=== PATIENT | female | born 1955 | race Caucasian/White ===

== ENCOUNTER → 2025-01-04 | Outpatient (CLI) | payer MEDICARE, SELFPAY ==
--- NOTE | 2025-01-04 11:59 | EKG12_ITS ---
Test Reason : PREOP Blood Pressure : */* mmHG Vent. Rate : 54 BPM Atrial Rate : 54 BPM P-R Int : 148 ms QRS Dur : 82 ms QT Int : 446 ms P-R-T Axes : 56 27 56 degrees QTcB Int : 422 ms Sinus bradycardia Otherwise normal ECG Confirmed by Obi Paredes ([id number]), tape editor LAVINIA POOLE ([id number]) on 01/05/2025 11:03:34 AM Referred By: Bismark Gibson Confirmed By: Obi Paredes
[2025-01-04 12:51] LABS: Hematocrit 41.4 % (37-47); Hemoglobin 13.3 g/dL (12.0-15.0); Immature Granulocytes Count 0.020 X10^3/uL (0.0-0.0); Mean Corp Hgb Conc 32.1 g/dL (32-36); Mean Corpuscular Volume 88.7 fL (81-99); Mean Platelet Vol. 10.1 fl (6.2-12.0); NRBC Flagged by Analyzer 0 % (0-5); Platelet Count 217 K/mm3 (150-450); RBC Distribution Width CV 14.3 % (11.6-14.6); RBC Distribution Width SD 46.3 fl (35.1-43.9); Red Blood Count 4.67 M/mm3 (4.2-5.4); White Blood Count 6.9 K/mm3 (4.4-11.0)
[2025-01-04 13:17] LABS: Creatinine, Urine (random) 44.30 mg/dL (28.00-217.00); Protein, Urine (Random) < 6.0 mg/dL (0.0-12.0); Protein:Creat Ratio 112 mg/g CRE (0-200)
[2025-01-04 13:19] LABS: PTHIN 44 pg/mL (11-61)
[2025-01-04 13:30] LABS: Albumin, Serum 4.3 g/dL (3.4-4.8); Anion Gap 11 (5-15); BUN 20 mg/dL (4-19); BUN/Creat Ratio 17.3 RATIO (10-20); Calcium,Total 9.7 mg/dL (7.6-11.0); Carbon Dioxide 25.3 mmol/L (21.0-32.0); Chloride 102 mmol/L (98-108); Glucose 89 mg/dL (70-99); Potassium 4.2 mmol/L (3.3-5.1); Vitamin D,25 Hydroxy 99.0 ng/mL (30-100)
--- OUTSIDE RECORDS SUMMARY | 2025-01-04 21:58 | XMS RPT_ITS | CCD ---
Author Organization [facility] Care Team Providers Care Bookkeeper Assistant Name Role Phone Nuris Gillis Primary Care Provider [phone] NURIS GILLIS Primary Care Unavailab le MICHELLE GAGNON Referring Unavailable NURIS GILLIS Referring Unavailab NURIS Ferrell Primary Care Unavailab le Nuris Gillis Primary Care Provider [phone] NURIS GILLIS Primary Care Unavailab le Allergies Allergy Classification Reported Allergen(s) Allergy Type Date of Onset Reaction(s) Facility (3 sources) Adhesive Tape Allergy to substance Other: See Comments [facility] Medications Current Medications Medication Drug Class(es) Dates Sig (Normalized) Sig (Original) Aspirin (10 sources) Platelet Aggregation Inhibitor, Nonsteroidal Anti-inflammatory Drug BABY ASPIRIN ORAL Take by mouth. Active BABY ASPIRIN ORA L Take by mouth. 0 Active Comment on above: Take by mouth. Calcium Carbonate (10 sources) CALCIUM CARBONAT E (CALCIUM 500 ORAL) Take by mouth. Active CALCIUM CARBONAT E (CALCIUM 500 ORAL) Take by mouth. 0 Active Comment on above: Take by mouth. Calcium Carbonate / vitamin D3 (10 sources) CALCIUM CARBONAT E/VITAMIN D3 (VITAMIN D-3 ORAL) Take by mouth. Active CALCIUM CARBONAT E/VITAMIN D3 (VITAMIN D-3 ORAL) Take by mouth. 0 Active Comment on above: Take by mouth. estradiol 0.5 mg oral tablet (2 sources) Estrogen Start: 05-27-2024 take 1 tablet by mouth once estradiol (ESTRACE) 0.5 mg tablet Take 1 tablet by mouth every afternoon. 05/27/2024 Active Flaxseed extract (10 sources) Non-Standardized Food Allergenic Extract, Non-Standardized Plant Allergenic Extract FLAXSEED ORAL Take by mouth. Active FLAXSEED ORAL Ta ke by mouth. 0 Active Comment on above: Take by mouth. Lactobacillus acidophilus (2 sources) take 1 tablet by mouth once daily Lactobacillus acidophilus (PROBIOTIC ACIDOPHILUS ORAL) Take 1 tablet by mouth once daily. Active medroxyPROGESTERone acetate 2.5 mg oral tablet (2 sources) Progestin Start: 2021 medroxyPROGESTERone (PROVERA) 2.5 mg tablet 04/06/2022 Active Multivitamin capsule (10 sources) take 1 capsule by mouth once daily Multivitamin capsule Take 1 capsule by mouth once daily. Active take 1 capsule by mouth once emerald ly Multivitamin capsule Take 1 capsule by mouth once daily. 0 Active Comment on above: Take 1 capsule by mo uth once daily. sertraline 50 mg oral tablet (2 sources) Serotonin Reuptake Inhibitor Start: 01-22-2023 sertraline (ZOLOFT) 50 mg tablet 01/22/2023 Active vitamin b12 0.5 mg oral tablet (10 sources) Vitamin B12 cyanocobalamin ( B-12 DOTS) 500 mcg tab Take by mouth once daily. Active Comment on above: Take by mouth once d aily. Completed/Discontinued Medications Medication Drug Class(es) Dates Sig (Normalized) Sig (Original) ascorbic acid 500 mg oral tablet (8 sources) Vitamin C End: 06-29-2024 take 1 tablet by mouth once daily ascorbic acid (VITAMIN C) 500 mg tablet Take 500 mg by mouth once daily. 06/29/2024 Discontinued (Course of therapy completed) Comment on above: Take 500 mg by mouth once daily. vitamin e 180 mg oral capsule (8 sources) End: 06-29-2024 take 1 capsule by mouth once daily VITAMIN E, DL,TOCOPHERYL ACET, (VITAMIN E, DL, ACETATE,) 400 unit cap Take 400 Units by mouth once daily. 06/29/2024 Discontinued (Course of therapy completed) Comment on above: Take 400 Units by mo uth once daily. Problems Active Problems Problem Classification Problem Date Documented Da te Episodic/Chronic Chronic kidney disease (1 source) Chronic kidney disease; Translations: [Chronic kidney disease (CKD) stage G3a/A1, moderately decreased glomerular filtration rate (GFR) between 45-59 mL/min/1.73 square meter and albuminuria creatinine ratio less than 30 mg/g ([facility])] Onset: 12-30-2023 Nutritional deficiencies (1 source) Vitamin D deficiency, unspecified; Translations: [Avitaminosis D] Onset: 12-30-2023 Chronic Other screening for suspected conditions (not mental disorders or infectious disease) (3 sources) Abnormal findings on diagnostic imaging of breast; Translations: [Other abnormal and inconclusive findings on diagnostic imaging of breast] 06-29-2024 Episodic Unclassified (1 source) screening Onset: 06-18-2024 Past or Other Problems Problem Classification Problem Date Documented Da te Episodic/Chronic Other diseases of kidney and ureters (1 source) Hydronephrosis with ureteropelvic junction obstruction; Translations: [Acquired hydronephrosis with ureteropelvic junction (UPJ) obstruction] Onset: 12-30-2023 Episodic Other gastrointestinal disorders (10 sources) Disorder of abdomen; Translations: [Other specified symptoms and signs involving the digestive system and abdomen] Onset: 08-03-2014 08-03-2014 Episodic Results Test Name Value Interpretation Reference Range Facil ity CNPKayy 06-25-2024 CNPN Telephone (RADMN) JUANITA VALLES ([id number]) 1955 F VFE Date Time Provider Department 06/25/24 RAYMUNDO ARRIAGA MD During your visit today, we recorded the following information about you: Juan Staleyra 06/25/2024 9:30 AM Signed CALLED PT TO HELP HER SCHEDULED BX. SHE WANTED TO GO TO THE [place] LOCATION SINCE SHE LIVES IN [place]. I GAVE HER THE PHONE NUMBER TO [place] [facility]. AND THE INSTRUCTIONS TO WHAT SHE NEEDS TO DO. SHE WILL CALL US BACK IF SHE CANNOT GET INTO [place]. Allergies As of Date: 06/25/2024 (No Known Allergies) Date Reviewed: 08/03/2014 Reviewed by: Mary Quiroz - Fully Assessed Reason for Visit: Mammogram Result Call Back [[id number]] Prescriptions as of 06/25/2024 - BABY ASPIRIN ORAL Take by mouth. - Multivitamin capsule Take 1 capsule by mouth once daily. - VITAMIN E, DL,TOCOPHERYL ACET, (VITAMIN E, DL, ACETATE,) 400 unit cap Take 400 Units by mouth once daily. - ascorbic acid (VITAMIN C) 500 mg tablet Take 500 mg by mouth once daily. - FLAXSEED ORAL Take by mouth. - CALCIUM CARBONATE (CALCIUM 500 ORAL) Take by mouth. - CALCIUM CARBONATE/VITAMIN D3 (VITAMIN D-3 ORAL) Take by mouth. - cyanocobalamin (B-12 DOTS) 500 mcg tab Take by mouth once daily. Problem List As Of Date 06/25/2024 Noted Resolved Abnormal abdominal exam [R19.8] 08/03/2014 Encounter Status:Closed by SIRI STALEY on 06/25/24 Normal [facility] [employer] BRE[employer] Opicos RTon 06-23 [facility] [employer] * * *Final Report* * * DATE OF EXAM: Jun 23 2024 9:23AM WRU [id number] - [facility] [employer] RT / PROCEDURE REASON: Abnormal Mammogram Screening * * * * Physician Interpretation * * * * [place] [place] [address] #[id number] - [facility] [employer] RT HISTORY: Patient is 69 years old and is seen for diagnostic evaluation of abnormal mammogram in the right breast. Patient states no personal history of breast cancer. Patient states no personal history of other cancers. COMPARISON STUDIES: The present examination has been compared to prior imaging studies dated 03/29/2020 (mammogram), 03/30/2021 (mammogram), 04/05/2022 (mammogram), 04/09/2023 (mammogram) and 06/18/2024 (mammogram). ULTRASOUND TECHNIQUE: Targeted ultrasound of the indicated area was performed. Goss scale images were saved. ULTRASOUND FINDINGS: There is an oval mass with circumscribed margins measuring 0.5 cm in the right breast at 2 o'clock, middle depth. Internal echotexture is hypoechoic. Color flow imaging demonstrates vascularity is not present. No axillary adenopathy. IMPRESSION: The 0.5 cm oval mass in the right breast is suspicious for malignancy. Ultrasound-guided biopsy is recommended. BI-RADS Category 4: Suspicious Interpreting Radiologist: Raymundo Arriaga M.D. Electronically signed on: 06/23/2024 Mainframe Programmer: CASIMIRO Transcribe Date/Time: Jun 23 2024 9:08A Dictated by : RAYMUNDO ARRIAGA MD This examination was interpreted and the report reviewed and electronically signed by: RAYMUNDO ARRIAGA MD on Jun 23 2024 9:43AM EST [id number] N Normal [facility] US Breast - right limitedon 06-23-2024 IMPRESSION: The 0.5 cm oval mass in the right breast is suspicious for malignancy. Ultrasound-guided biopsy is recommended. BI-RADS Category 4: Suspicious Interpreting Radiologist: Raymundo Arriaga M.D. Electronically signed on: 06/23/2024 Mainframe Programmer: CASIMIRO Transcribe Date/Time: Jun 23 2024 9:08A Dictated by : RAYMUNDO ARRIAGA MD This examination was interpreted and the report reviewed and electronically signed by: RAYMUNDO ARRIAGA MD on Jun 23 2024 9:43AM EST DIVISION OF RADIOLOGY * * *Final Report* * * DATE OF EXAM: Jun 23 2024 9:23AM U [id number] - [facility] [employer] RT / PROCEDURE REASON: Abnormal Mammogram Screening * * * * Physician Interpretation * * * * [place] [address] #[id number] - [facility] [employer] RT HISTORY: Patient is 69 years old and is seen for diagnostic evaluation of abnormal mammogram in the right breast. Patient states no personal history of breast cancer. Patient states no personal history of other cancers. COMPARISON STUDIES: The present examination has been compared to prior imaging studies dated 03/29/2020 (mammogram), 03/30/2021 (mammogram), 04/05/2022 (mammogram), 04/09/2023 (mammogram) and 06/18/2024 (mammogram). ULTRASOUND TECHNIQUE: Targeted ultrasound of the indicated area was performed. Goss scale images were saved. ULTRASOUND FINDINGS: There is an oval mass with circumscribed margins measuring 0.5 cm in the right breast at 2 o'clock, middle depth. Internal echotexture is hypoechoic. Color flow imaging demonstrates vascularity is not present. No axillary adenopathy. DIVISION OF RADIOLOGY Provider, Jesús lopez [place] - 06/23/2024 * * *Final Report* * * DATE OF EXAM: Jun 23 2024 9:23AM WRU 0594 - [facility] US BREAST LTD RT / PROCEDURE REASON: Abnormal Mammogram Screening * * * * Physician Interpretation * * * * [place] [address] #[id number] - [facility] US [employer] RT HISTORY: Patient is 69 years old and is seen for diagnostic evaluation of abnormal mammogram in the right breast. Patient states no personal history of breast cancer. Patient states no personal history of other cancers. COMPARISON STUDIES: The present examination has been compared to prior imaging studies dated 03/29/2020 (mammogram), 03/30/2021 (mammogram), 04/05/2022 (mammogram), 04/09/2023 (mammogram) and 06/18/2024 (mammogram). ULTRASOUND TECHNIQUE: Targeted ultrasound of the indicated area was performed. Goss scale images were saved. ULTRASOUND FINDINGS: There is an oval mass with circumscribed margins measuring 0.5 cm in the right breast at 2 o'clock, middle depth. Internal echotexture is hypoechoic. Color flow imaging demonstrates vascularity is not present. No axillary adenopathy. IMPRESSION IMPRESSION: The 0.5 cm oval mass in the right breast is suspicious for malignancy. Ultrasound-guided biopsy is recommended. BI-RADS Category 4: Suspicious Interpreting Radiologist: Raymundo Arriaga M.D. Electronically signed on: 06/23/2024 Mainframe Programmer: CASIMIRO Transcribe Date/Time: Jun 23 2024 9:08A Dictated by : RAYMUNDO ARRIAGA MD This examination was interpreted and the report reviewed and electronically signed by: RAYMUNDO ARRIAGA MD on Jun 23 2024 9:43AM EST [facility] Radiology Study observation (narrative) [facility] US Breast - right limitedOrd ered By: [facility] Provider on 06-23-2024 [facility] ALEM SCREENING W TOMOon 06-18 ALEM SCREENING W ALEX * * *Final Report* * * DATE OF EXAM: Jun 18 2024 5:09PM [id number] [id number] - ALEM SCREENING W ALEX / PROCEDURE REASON: Z12.31 Encounter for screening mammogram for malignant neoplasm of breast * * * * Physician Interpretation * * * * [address] [address] #[id number] - ALEM SCREENING W ALEX HISTORY: Patient is 69 years old and is seen for screening. No current complaints. Patient states no personal history of breast cancer. Patient states no personal history of other cancers. COMPARISON STUDIES: The present examination has been compared to prior imaging studies dated 03/18/2019 (mammogram), 03/29/2020 (mammogram), 03/30/2021 (mammogram), 04/05/2022 (mammogram) and 04/09/2023 (mammogram). MAMMOGRAM TECHNIQUE: The study was acquired using full field digital technology and interpreted from soft copy. Digital Breast Tomosynthesis (DBT) images were obtained and used to assist in the interpretation of this examination. Computer-aided detection was utilized by the radiologist in the interpretation of this examination. MAMMOGRAM FINDINGS: The breasts are heterogeneously dense, which may obscure small masses. There is an oval mass in the upper inner quadrant of the right breast, anterior depth. No suspicious masses, calcifications or other abnormalities are seen in the left breast. IMPRESSION: The oval mass in the right breast requires additional evaluation. Diagnostic ultrasound is recommended. BI-RADS Category 0: Incomplete: Needs Additional Imaging Evaluation RISK: Based on the Tyrer-Cuzick (TC) risk assessment model, this patient has a 4.0% lifetime risk of developing breast cancer, meaning they are at average risk for developing breast cancer. However, this is only an estimate based on available history provided on the patient's questionnaire. We encourage all patients to talk with their providers about these results, further recommendations for managing breast health, and appropriate supplemental screening options if the patient has dense breast tissue. Interpreting Radiologist: Latasha Birch M.D. Electronically signed on: 06/21/2024 Mainframe Programmer: CASIMIRO Transcribe Date/Time: Jun 18 2024 4:46P Dictated by : LATASHA BIRCH MD This examination was interpreted and the report reviewed and electronically signed by: LATASHA BIRCH MD on Jun 21 2024 1:11PM EST [id number] N Normal [facility] 25(OH)D3 SerPl-mCncon 2023 25-hydroxyvitamin D3 [Mass/Vol] 87.3 ng/mL Normal >=30.0 [facility] Comment on above: Order Comment: Speci men Type: BLOOD SPECIMEN Ordering Facility: [address] Address: [address] [place] [address] Result Comment: Clas sification of 25 [place] Vitamin D status: Deficiency: <= 20.0 ng/ml. Insufficiency: 21.0-29.0 ng/ml. Sufficiency: >= 30.0 ng/ml. Performed By: #### 1 989-3 #### [facility] CLIA [id number] [address] STATES OF [facility] CBC panel Auto (Bld)on 12-29 Erythrocyte distribution width (RBC) [Ratio] 15.6 % High 11.5-15.0 [facility] Comment on above: Order Comment: Speci [facility] Type: BLOOD SPECIMEN Ordering Facility: [address] Address: [address] [place] [address] Performed By: #### 5 8410-2 #### [facility] CLIA [id number] [address] [place] [address] [place] Hematocrit (Bld) [Volume fraction] 37.1 % Normal 36.0-46.0 [facility] Comment on above: Order Comment: Speci men Type: BLOOD SPECIMEN Ordering Facility: [address] Address: [address] [place] [address] Performed By: #### 5 8410-2 #### [facility] CLIA [id number] [address] [place] [address] [place] Hemoglobin (Bld) [Mass/Vol] 11.5 g/dL Normal 11.5-15.5 [facility] Comment on above: Order Comment: Speci men Type: BLOOD SPECIMEN Ordering Facility: [address] Address: [address] [place] [address] Performed By: #### 5 8410-2 #### [facility] CLIA [id number] [address] [place] [address] [place] MCH (RBC) [Entitic mass] 26.1 pg Normal 26.0-34.0 [facility] Comment on above: Order Comment: Speci men Type: BLOOD SPECIMEN Ordering Facility: [address] Address: [address] [place] [address] Performed By: #### 5 8410-2 #### [facility] CLIA [id number] [address] [place] [address] [place] MCHC (RBC) [Mass/Vol] 31.0 g/dL Normal 30.5-36.0 [facility] Comment on above: Order Comment: Speci men Type: BLOOD SPECIMEN Ordering Facility: [address] Address: [address] [place] [address] Performed By: #### 5 8410-2 #### [facility] CLIA [id number] [address] [place] [address] [place] MCV (RBC) [Entitic vol] 84.1 fL Normal 80.0-100.0 [facility] Comment on above: Order Comment: Speci men Type: BLOOD SPECIMEN Ordering Facility: [address] Address: [address] [place] [address] Performed By: #### 5 8410-2 #### [facility] CLIA [id number] [address] [place] [address] [place] Platelet mean volume (Bld) [Entitic vol] 9.6 fL Normal 9.0-12.7 [facility] Comment on above: Order Comment: Speci men Type: BLOOD SPECIMEN Ordering Facility: [address] Address: [address] [place] [address] Performed By: #### 5 8410-2 #### [facility] CLIA [id number] [address] [place] [address] [place] Platelets (Bld) [#/Vol] 197 10*3/uL Normal 150-400 [facility] Comment on above: Order Comment: Speci men Type: BLOOD SPECIMEN Ordering Facility: [facility] 30 [facility] Address: [address] [place] [address] Performed By: #### 5 8410-2 #### [facility] CLIA [id number] [address] [place] [place] [address] [place] RBC (Bld) [#/Vol] 4.41 10*6/uL Normal 3.90-5.20 [facility] Comment on above: Order Comment: Speci men Type: BLOOD SPECIMEN Ordering Facility: [address] Address: [address] [place] [address] Performed By: #### 5 8410-2 #### [facility] CLIA [id number] [address] [place] [address] [place] WBC (Bld) [#/Vol] 5.81 10*3/uL Normal 3.70-11.00 [facility] Comment on above: Order Comment: Speci men Type: BLOOD SPECIMEN Ordering Facility: [address] Address: [address] [place] [address] Performed By: #### 5 8410-2 #### [facility] CLIA [id number] [address] [place] [address] [facility] [place] [facility] Parathyrin.intact [Mass/Vol] 55 pg/mL Normal 15-65 [facility] Comment on above: Order Comment: Speci men Type: BLOOD SPECIMEN Ordering Facility: [address] Address: [address] [place] [address] Result Comment: Test methodology for this assay has moved from Siemens Centaur XP to Nikhil néstor 8000 effective March 27, 2022. Please note there may be a change in the reporting units and/or reference range. Performed By: #### 2 731-8 #### [facility] CLIA [id number] [address] [place] Prot/Creat Uron 07-08-2024 Protein/Creatinine (U) [Mass ratio] 0.12 mg/mg Normal <0.15 [facility] Comment on above: Order Comment: Speci men Type: URINE SPECIMEN Ordering Facility: [facility] 30 [facility] Address: [address] [place] [address] Result Comment: Adul t Proteinuria Categories: <0.15 mg/mg is considered normal to mildly increased 0.15 - 0.50 mg/mg is considered moderately increased >0.50 mg/mg is considered severely increased KDIGO. (2013). KDIGO 2012 Clinical Practice Guideline for the Evaluation and Management of Chronic Kidney Disease. Official Journal of the International Society of Nephrology, 3(1), 1-150. Performed By: #### 2 890-2 #### [facility] Up [facility] CLIA [id number] [address] [place] [facility] Protein/Creatinine (U) [Mass ratio]on 12-30-2023 Creatinine (U) [Mass/Vol] 40.5 mg/dL Low 42.2-237.9 [facility] Comment on above: Order Comment: Speci men Type: URINE SPECIMEN Ordering Facility: [address] Address: [address] [place] [address] Performed By: #### 2 890-2 #### [facility] CLIA [id number] [address] [place] [facility] Protein (U) [Mass/Vol] 5 mg/dL Normal 0-20 [facility] Comment on above: Order Comment: Speci men Type: URINE SPECIMEN Ordering Facility: [facility] 30 [facility] Address: [address] [place] [address] Performed By: #### 2 890-2 #### [facility] CLIA [id number] [address] [place] Renal function 2000 panelon 12-30-2023 Albumin [Mass/Vol] 4.3 g/dL Normal 3.9-4.9 [facility] Comment on above: Order Comment: Speci men Type: BLOOD SPECIMEN Ordering Facility: [address] Address: [address] [place] [address] Performed By: #### 2 4362-6 #### [facility] CLIA [id number] [address] [place] [place] [address] [place] Anion gap [Moles/Vol] 8 mmol/L Normal 8-15 [facility] Comment on above: Order Comment: Speci men Type: BLOOD SPECIMEN [facility]: [facility] [address] [facility] Address: [address] [place] [address] Performed By: #### 2 4362-6 #### [facility] CLIA [id number] [address] [place] [place] [address] [place] Calcium [Mass/Vol] 9.0 mg/dL Normal 8.5-10.2 [facility] Comment on above: Order Comment: Speci men Type: BLOOD SPECIMEN Ordering Facility: [facility] [address] [facility] Address: [address] [place] [address] Performed By: #### 2 4362-6 #### [facility] CLIA [id number] [address] [place] [place] [address] [place] Chloride [Moles/Vol] 103 mmol/L Normal 98-107 [facility] Comment on above: Order Comment: Speci men Type: BLOOD SPECIMEN [facility] Address: [address] [place] [address] Performed By: #### 2 4362-6 #### [facility] CLIA [id number] [address] [place] [place] [address] [place] CO2 [Moles/Vol] 28 mmol/L Normal 22-30 [facility] Comment on above: Order Comment: Speci men Type: BLOOD SPECIMEN Ordering [facility]: [facility] [address] [facility] Address: [address] [place] [address] Performed By: #### 2 4362-6 #### [facility] CLIA [id number] [address] [place] [place] [address] [place] Creatinine [Mass/Vol] 1.18 mg/dL High 0.58-0.96 [facility] Comment on above: Order Comment: Alex shin Type: BLOOD SPECIMEN Ordering Facility: [address] Address: [address] [place] [address] Performed By: #### 2 4362-6 #### [facility] CLIA [id number] [address] [place], [place] [address] [place] Creatinine and Glomerular filtration rate.predicted panel (S/P/Bld) 51 mL/min/1.73m??? Low >=60 [facility] Comment on above: Order Comment: Alex aleida Type: BLOOD SPECIMEN Ordering Facility: [address] Address: [address] [place] [address] Result Comment: Evelin mated Glomerular Filtration Rate (eGFR) is calculated using the 2020 CKD-EPI creatinine equation. This equation utilizes serum creatinine, sex, and age as parameters. The creatinine assay has traceable calibration to isotope dilution-mass spectrometry. Refer to KDIGO guidelines for clinical interpretation. In patients with unstable renal function, e.g. those with acute kidney injury, the eGFR may not accurately reflect actual GFR. Performed By: #### 2 4362-6 #### [facility] CLIA [id number] [address] [place], [place] [address] [place] Glucose [Mass/Vol] 90 mg/dL Normal 74-99 [facility] Comment on above: Order Comment: Alex aleida Type: BLOOD SPECIMEN Ordering Facility: [address] Address: [address] [place] [address] Result Comment: [employer] [place] Diabetes Association (ADA) provides guidance for cutoff values for fasting glucose and random glucose. The ADA defines fasting as no caloric intake for at least 8 hours. Fasting plasma glucose results between 100 to 125 mg/dL indicate increased risk for diabetes (prediabetes). Fasting plasma glucose results greater than or equal to 126 mg/dL meet the criteria for diagnosis of diabetes. In the absence of unequivocal hyperglycemia, results should be confirmed by repeat testing. In a patient with classic symptoms of hyperglycemia or hyperglycemic crisis, random plasma glucose results greater than or equal to 200 mg/dL meet the criteria for diagnosis of diabetes. Reference: Standards of Medical Care in Diabetes 2016, [place] Diabetes Association. Diabetes Care. 2016.39(Suppl 1). Performed By: #### 2 4362-6 #### [facility] CLIA [id number] [address] [place] [address] [place] Phosphate [Mass/Vol] 3.8 mg/dL Normal 2.7-4.8 [facility] Comment on above: Order Comment: Speci men Type: BLOOD SPECIMEN Ordering Facility: [facility] Address: [address] [place] [address] Performed By: #### 2 4362-6 #### [facility] CLIA [id number] [address] [place] [address] [place] Potassium [Moles/Vol] 4.5 mmol/L Normal 3.7-5.1 [facility] Comment on above: Order Comment: Speci men Type: BLOOD SPECIMEN Ordering Facility: [facility] [address] [facility] Address: [address] [place] [address] Performed By: #### 2 4362-6 #### [facility] CLIA [id number] [address] [place] [address] [place] Sodium [Moles/Vol] 139 mmol/L Normal 136-144 [facility] Comment on above: Order Comment: Speci men Type: BLOOD SPECIMEN Ordering Facility: [facility] [address] [facility] Address: [address] [place] [address] Performed By: #### 2 4362-6 #### [facility] CLIA [id number] [address] [place] [address] [place] Urea nitrogen [Mass/Vol] 18 mg/dL Normal 7-21 [facility] Comment on above: Order Comment: Speci men Type: BLOOD SPECIMEN Ordering Facility: [facility] [address] [facility] Address: [address] [place] [address] Performed By: #### 2 4362-6 #### [facility] CLIA [id number] [address] [place] [address] [place] Urinalysis complete panel (U )on 12-30-2023 Bilirubin Ql (U) Negative Normal Negative [facility] Comment on above: Order Comment: Speci men Type: URINE SPECIMEN Ordering Facility: [facility] [address] [facility] Address: [address] [place] [address] Performed By: #### 2 4356-8 #### [facility] CLIA [id number] [address] [place] [place] [address] [facility] [place] Clarity (Unsp spec) Clear Normal Clear [facility] Comment on above: Order Comment: Speci men Type: URINE SPECIMEN Ordering Facility: [facility] [address] [facility] Address: [address] [place] [address] Performed By: #### 2 4356-8 #### [facility] CLIA [id number] [address] [place] [address] [place] Color (U) Yellow Normal Yellow [facility] Comment on above: Order Comment: Speci men Type: URINE SPECIMEN Ordering Facility: [facility] 30 [facility] Address: [address] [place] [address] Performed By: #### 2 4356-8 #### [facility] CLIA [id number] [address] [place] [address] [place] Epithelial cells LM.HPF (Urine sed) [#/Area] Few Normal [facility] Comment on above: Order Comment: Speci men Type: URINE SPECIMEN Ordering Facility: [facility] [address] [facility] Address: [address] [place] [address] Performed By: #### 2 4356-8 #### [facility] CLIA [id number] [address] [place] [address] [place] Glucose Test strip (U) [Mass/Vol] Negative Normal Negative [facility] Comment on above: Order Comment: Speci men Type: URINE SPECIMEN Ordering Facility: [facility] [address] [facility] Address: [address] [place] [address] Performed By: #### 2 4356-8 #### [facility] CLIA [id number] [address] [place] [address] [place] Hemoglobin Ql (U) Negative Normal Negative [facility] Comment on above: Order Comment: Speci men Type: URINE SPECIMEN Ordering Facility: IS[facility] [address] [facility] Address: [address] [place] [address] Performed By: #### 2 4356-8 #### [facility] CLIA [id number] [address] [place] [address] [facility] [place] Ketones Ql (U) Negative Normal Negative [facility] Comment on above: Order Comment: Speci men Type: URINE SPECIMEN Ordering Facility: [facility] 30 [facility] Address: [address] [place] [address] Performed By: #### 2 4356-8 #### [facility] CLIA [id number] [address] [place] [address] [facility] Leukocyte esterase Test strip Ql (U) 1+ Abnormal Negative [facility] Comment on above: Order Comment: Speci men Type: URINE SPECIMEN Ordering Facility: [facility] 30 [facility] Address: [address] [place] [address] Performed By: #### 2 4356-8 #### [facility] CLIA [id number] [address] [place] [address] [place] Nitrite Ql (U) Negative Normal Negative [facility] Comment on above: Order Comment: Speci men Type: URINE SPECIMEN Ordering Facility: [facility] 30 [facility] Address: [address] [place] [address] Performed By: #### 2 4356-8 #### [facility] CLIA [id number] [address] [place] [address] [place] pH (U) 7.5 [pH] Normal 5.0-8.0 [facility] Comment on above: Order Comment: Speci men Type: URINE SPECIMEN Ordering Facility: [facility] 30 [facility] Address: [address] [place] [address] Performed By: #### 2 4356-8 #### [facility] CLIA [id number] [address] [place] [address] [place] Protein (U) [Mass/Vol] Negative Normal Negative [facility] Comment on above: Order Comment: Speci men Type: URINE SPECIMEN Ordering Facility: [facility] [address] [facility] Address: [address] [place] [address] Performed By: #### 2 4356-8 #### [facility] CLIA [id number] [address] [place], [place] [address] [place] [address] [place] RBC LM.HPF (Urine sed) [#/Area] 0-3 /HPF Normal 0-3 /HPF [facility] Comment on above: Order Comment: Speci men Type: URINE SPECIMEN Ordering Facility: [facility] [address] [facility] Address: [address] [place] [address] Performed By: #### 2 4356-8 #### [facility] CLIA [id number] [address] [place] Specific gravity (U) [Rel density] 1.015 Normal 1.005-1.030 [facility] Comment on above: Order Comment: Speci men Type: URINE SPECIMEN Ordering Facility: [facility] 30 [facility] Address: [address] [place] [address] Performed By: #### 2 4356-8 #### [facility] CLIA [id number] [address] Urobilinogen Ql (U) 0.2 EU/dL Normal 0.2-1.0 EU/dL [facility] Comment on above: Order Comment: Speci men Type: URINE SPECIMEN Ordering Facility: [facility] [address] [facility] Address: [address] [place] [address] Performed By: #### 2 4356-8 #### [facility] CLIA [id number] [address] [place] [id number] [facility] WBC LM.HPF (Urine sed) [#/Area] 0-5 /HPF Normal 0-5 /HPF [facility] Comment on above: Order Comment: Speci men Type: URINE SPECIMEN Ordering Facility: [facility] [address] [facility] Address: [address] [place] [address] Performed By: #### 2 4356-8 #### [facility] CLIA [id number] [address] [place] [address] [place] ALEM SCREENING W TOMOon 04-09 [facility] ALEM SCREENINGon 04-05-2022 [facility] ALEM SCREENINGon 03-29-2020 ALEM SCREENING Final Report DATE OF EXAM: Mar 29 2020 3:20PM LDW [id number] - [facility] SCREENING / PROCEDURE REASON: Screening Physician Interpretation #[id number] - [facility] SCREENING BILATERAL DIGITAL SCREENING MAMMOGRAM WITH CAD: 03/29/2020 HISTORY: /Screening Mammogram-patient reports no symptoms. RESULT: TECHNIQUE: The study was acquired using full field digital technology and interpreted from soft copy. Current study was also evaluated with a Computer Aided Detection (CAD). Comparison is made to exams dated: 03/18/2019 mammogram, 03/11/2018 mammogram, 02/28/2017 mammogram, 12/07/2015 mammogram, 10/19/2014 mammogram, and 10/09/2013 [facility]. The tissue of both breasts is heterogeneously dense. This may lower the sensitivity of mammography. No significant masses, calcifications, or other findings are seen in either breast. There has been no significant interval change. IMPRESSION: NEGATIVE There is no mammographic evidence of malignancy. A 1 year screening mammogram is recommended. Herb porras/samir:03/29/2020 16:07:25 Firestopper Technician(s): Guillermo Estrella (Franky)(M), [facility] letter sent: Normal over 40 Mammogram BI-RADS: 1 Negative Multiple national specialty organizations have released breast cancer screening guidelines for women at average risk for developing breast cancer - guidelines that are based on both evidence and opinion, yet differ on when to start and how often to screen for breast cancer. With representation from Breast Imaging, Internal Medicine, Women's Health, Family Medicine, and Medical/Surgical Oncology, the [facility] has carefully reviewed the data and reached the following consensus: 1) All women should engage in shared decision-making with their providers to decide when to start and how often to screen; 2) All women should have the opportunity to start screening mammography at age 40; 3) For women ages 45-55, we recommend annual screening mammograms; 4) For women ages 55 and over, we support both the transition from an annual to a biennial interval if this aligns more with patient's values and preferences, or continuation with annual screening; 5) All women should discuss with their providers when to stop screening mammograms. Mainframe Programmer: Samir Transcribe Date/Time: Mar 29 2020 3:06P Dictated by : HERB SULLIVAN MD This examination was interpreted and the report reviewed and electronically signed by: HERB SULLIVAN MD on Mar 29 2020 4:07PM EST Normal [facility] Vital Signs Date Time Vital Sign Value Performing Clinician Marco prasad 06-29-2024 13:42-0500 Body height 167.6 cm Ramon Wiggins Jr., MD Work Phone: [facility] 06-29-2024 13:42-0500 Body mass index (BMI) [Ratio] 26.83 kg/m2 Ramon Wiggins Jr., MD Work Phone: [facility] 06-29-2024 13:42-0500 Body weight 75.4 kg Ramon Wiggins Jr., MD Work Phone: [facility] 06-29-2024 13:42-0500 Diastolic blood pressure 77 mm[Hg] Ramon Wiggins Jr., MD Work Phone: [facility] 06-29-2024 13:42-0500 Heart rate 60 /min Ramon Wiggins Jr., MD Work Phone: [facility] 06-29-2024 13:42-0500 Systolic blood pressure 164 mm[Hg] Ramon Wiggins Jr., MD Work Phone: [facility] Encounters Encounter Date Encounter Type Care Provider Facility Start: 07-06-2024 End: 07-06-2024 Admission to same day surgery center Ramon Wiggins MD Work Phone: Breast Surgery Comment on above: Abnormal finding on radiological examination of breast (Primary Dx) Start: 07-06-2024 End: 07-06-2024 Telemedicine consultation with patient Ramon Wiggins Jr., MD Work Phone: Breast Surgery Start: 06-29-2024 End: 06-29-2024 Office outpatient new 45 minutes Ramon Wiggins MD Work Phone: Breast Surgery Comment on above: Abnormal findings on diagnostic imaging of breast (Primary Dx); Abnormal finding on radiological examination of breast Start: 06-25-2024 End: 07-14-2024 Telephone encounter Jose Strickland MD Work Phone: Breast Surgery Start: 06-23-2024 End: 06-23-2024 ambulatory NURIS OWEN MCCONNELL Facility:[facility] Start: 06-23-2024 End: 06-23-2024 Subsequent hospital visit by physician [facility] 2 Work Phone: Radiology Start: 06-18-2024 [facility] Start: 06-18-2024 End: 06-18-2024 Subsequent hospital visit by physician Mammo/Bone Density [facility] Comment on above: screening Start: 12-30-2023 End: 12-30-2023 ambulatory [facility] VELIA OWEN MCCONNELL [facility] Start: 04-09-2023 Documentation procedure Mammog joesph Coordinator [facility] Start: 04-09-2023 Letter encounter [facility] Start: 04-09-2023 End: 04-09-2023 Subsequent hospital visit by physician Mammo/Bone Density [facility] Comment on above: Encounter for screen ing mammogram for malignant neoplasm of breast [Z12.31] Start: 04-05-2022 Documentation procedure Mammog joesph Coordinator [facility] Start: 04-05-2022 Letter encounter Mammography Coordinator [facility] ANCILLARY AREA NOT LISTED Start: 04-05-2022 End: 04-05-2022 Subsequent hospital visit by physician Mammo/Bone Density [facility] Comment on above: Screening Start: 02-08-2022 End: 02-08-2022 Subsequent hospital visit by physician Mammo/Bone Density [facility] Comment on above: Screening forOsteopo rosis Procedures Date Procedure Procedure Detail Performing Clinician Start: 06-23-2024 Us breast uni real t ananya with image limited [facility] Provider Start: 04-09-2023 Screening digital br east tomosynthesis bi Nuris Mcconnell Work Phone: Start: 04-05-2022 End: 04-05-2022 Screening mammography bi 2-view breast inc cad Nuris Mcconnell Work Phone: Start: 03-30-2021 Mammography [facility] Start: 02-11-2016 Lipid 1996 panel - S kimi or Plasma [facility] Plan of Treatment Date Care Activity Detail Author Start: 2031 RSV Vaccine (1 - 1-d ose 75+ series) RSV Vaccine (1 - 1-dose 75+ series) [facility] Start: 06-18-2025 Screening for malign ant neoplasm of breast Mammogram Screening [facility] Start: 03-25-2025 Screening for malign ant neoplasm of colon [facility] Start: 10-14-2024 End: 10-14-2024 Patient encounter procedure 10/14/2024 2:45 PM EDT Office Visit Breast Surgery [address] [place] [id number] Ramon Wiggins Jr., MD [address] [facility] [address] [place] [address] 3 month follow up. in office us. 07/07 dpa Breast Surgery Comment on above: 3 month follow up. i n office us. 07/07 dpa Start: 07-06-2024 End: 07-06-2024 Admission to same day surgery center 07/06/2024 2:00 PM [facility] Breast Surgery [address] [place] [id number] Ramon Wiggins Jr., MD [address] [facility] [address] [place] [address] fu breast bx (06/29/24) [employer] mcr ppo 06/26/24 prs (time per EN/prs) Breast Surgery Comment on above: fu breast bx (06/29/24 ) [employer] mcr ppo 06/26/24 prs (time per EN/prs) Start: 06-24-2024 Advance Directive Discussion Advance Directive Discussion [facility] Start: 04-09-2024 Screening for malign ant neoplasm of breast Mammogram Screening [facility] Start: 02-23-2024 Covid-19 Vaccine ( season) Covid-19 Vaccine ( season) [facility] Start: 02-23-2024 Influenza vaccination Influenza Vacc ine (#1) [facility] Start: 06-24-2023 Advance Directive Discussion Advance Directive Discussion [facility] Start: 04-05-2023 Mammography [facility] Start: 02-22-2023 Influenza vaccination Influenza Vacc ine (#1) [facility] Start: 06-24-2022 Advance Directive Discussion Advance Directive Discussion [facility] Start: 06-24-2022 Depression Assessment Depression Ass essment [facility] Start: 03-30-2022 Mammography MAMMOGRAM [facility] Start: 02-22-2022 Influenza vaccination INFLUENZA (#1) [facility] Start: 06-24-2021 ADVANCE DIRECTIVE DISCUSSION ADVANCE DIRECTIVE DISCUSSION [facility] Start: 06-24-2021 DEPRESSION ASSESSMENT DEPRESSION ASS ESSMENT [facility] Start: 2021 Pneumococcal Vaccine : 65+ (1 - PCV) Pneumococcal Vaccine: 65+ (1 - PCV) [facility] Start: 2021 PNEUMOCOCCAL: 65+ (1 - PCV) PNEUMOCOCCAL: 65+ (1 - PCV) [facility] Start: 02-10-2021 Lipid 1996 panel - S kimi or Plasma Lipid Screening [facility] Start: 02-10-2021 Lipid panel Lipid Screening [facility] Start: 02-10-2021 LIPID SCREEN LIPID SCREEN [facility] Start: 02-10-2019 DIABETES SCREEN DIABETES SCREEN [facility] Start: 02-10-2019 Diabetes Screening Diabetes Screenin g [facility] Start: 2016 RSV Vaccine (1 - 1-d ose 60+ series) RSV Vaccine (1 - 1-dose 60+ series) [facility] Start: 2006 Pneumococcal Vaccine : 50+ (1 of 1 - PCV) Pneumococcal Vaccine: 50+ (1 of 1 - PCV) [facility] Start: 2006 SHINGRIX VACCINE (1 of 2) SHINGRIX VACCINE (1 of 2) [facility] Start: 2001 COLOGUARD (FIT-DNA) COLOGUARD (FIT-D NA) [facility] Start: 2001 Colonoscopy COLONOSCOPY [facility] Start: 2001 COLORECTAL CANCER SCREENING COLORECTAL CANCER SCREENING [facility] Start: [address] COLONOGRAPHY [facility] Start: 2001 FECAL OCCULT BLOOD FECAL OCCULT BLOO D [facility] Start: 2001 Screening for malign ant neoplasm of colon [facility] Start: 2001 SIGMOIDOSCOPY SIGMOIDOSCOPY [facility] Start: 1975 Urine microalbumin profile [facility] Start: 1974 Anxiety Screening Anxiety Screening [facility] Start: 1974 Depression Screening Depression Scre ening [facility] Start: 1974 HEPATITIS C SCREENING HEPATITIS C SC [facility] Start: 1974 Hepatitis C screening Hepatitis C Sc [facility] Start: 1974 HIV SCREENING HIV SCREENING [facility] Start: 1968 Adult depression screening assessment DEPRESSION SCREENING [facility] Start: 1955 COVID-19 VACCINE (#1) COVID-19 VACCI NE (#1) [facility] SURGICAL PATHOLOGY SURGICAL PATH OLOGY Lab Routine Abnormal findings on diagnostic imaging of breast Ordered: 06/29/2024 [facility] Work Phone: Comment on above: Ordered: 06/29/2024 [facility] Immunizations Immunization Date Immunization Notes Care Provider Juliocesar camacho 03-14-2016 influenza virus vacc ine, unspecified formulation [facility] Payers Date Payer Category Payer Medicare [employer] MEDICARE A ETNA MEDICARE PPO [id number] 2021-Present [phone] [address] [place] [address] PPO [id number] 2021 Medicare [id number] Social History Date Type Detail Facility [facility]: [facility]03-[facility] Start: 08-03-2014 Tobacco use and exposure Smoke less tobacco non-user [facility] Start: 08-03-2014 End: 06-29-2024 Alcohol intake Current drinker of alcohol (finding) [facility] Start: 08-03-2014 History SDOH Alcohol Comment Very rare [facility] Start: 1955 Sex Assigned At Not on file [facility] Start: 01-28-2022 End: 04-05-2022 Exposure to SARS-CoV-2 (event) Not sure [facility] Start: 03-30-2021 End: 07-06-2024 History of Social function [facility] Start: 03-30-2021 End: 07-06-2024 Area Deprivation Index [facility] National Score (1-10 0), lower number is lower risk Not on file [facility] Clinical Notes 02-08-2022 to 07-14-2024 Telephone Encounter - Stephanie Pang - 07/14/2024 12:09 PM ESTTelephone Encounter - Stephanie Pang - 07/14/2024 12:09 PM ESTTelephone Encounter - Harleen Neal - 06/25/2024 9:32 AM EST Note Date & Type Note Facility 07-14-2024 Telephone encounter Note Patient seen by Dr. Wiggins on 07/06/24 [facility] 07-14-2024 Miscellaneous Notes Patient seen by Dr. Wiggins on 07/06/24 Dr Strickland Pt calling to schedule Breast Biopsy. New Pt, Pt says she is a snow bird, Dr Nuris Owen PCP referred her. PCP documented in this encounter [facility] 07-06-2024 History of Presen t illness Narrative Images from the original note were not included. BREAST SURGERY Patient Name: Juanita Valles : 1955 CSN: [id number] Encounter Date: 07/06/2024 REFERRAL: Nuris Mcconnell MD, Brayden Mcconnell, Nuris Gardner,* HISTORY OF PRESENT ILLNESS: Juanita Valles is a 69 year old female who presents unaccompanied for consultation regarding, abnormal right US BIRADS 4. The present findings are asymptomatic to the patient. She does not have prior history of breast disease . She does not have prior history of breast surgery . She does not have first degree family history of breast cancer . Patient does not have nipple discharge, nipple inversion, rashes, dimpling or breast skin changes. She denies fevers/chills/night sweats, weight loss, constant headaches, or other systemic complaints. TIMELINE/IMAGING 06/18/2024 screening mammo (CC): BI-RADS 0. Heterogeneously dense. There is an oval mass upper inner quadrant right breast anterior depth. 06/23/2024 Limited right ultrasound (CC): BI-RADS 4. 0.5 cm oval mass right breast 2:00 middle depth no vascularity. Biopsy recommended. 06/29/2024 PROCEDURE: Right breast ultrasound biopsy: Benign fibroadipose tissue. No breast tissue identified. No atypia or malignancy. INTERVAL HISTORY 07/06/2024 The patient presents today via telemedicine for review of pathology results . Since her last visit, 06/29/2024 PROCEDURE: Right breast ultrasound biopsy: Benign fibroadipose tissue. No breast tissue identified. No atypia or malignancy.. She has no new breast concerns. I have communicated my name and active licensure. The patient's identity and physical location were verified at the time of this visit. Either the patient or their legal underwriting account representative has been informed of the risks and benefits of -- and alternatives to -- treatment through a remote evaluation and consents to proceed with the evaluation remotely. 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) PAST SURGICAL HISTORY OF 83,85,05 c section hernia x2, initial epigastric incisional hernia REP INIT INCI/VENTRAL HERNIA REDUCIBLE 2006 W STRIP[address] VEIN 85,01 FAMILY HISTORY: FAMILY HISTORY Problem Relation Age of Onset Hypertension Mother Heart Mother Heart Father No Known Problems Sister No Known Problems Sister No Known Problems Sister No Known Problems Sister Thyroid Maternal Grandmother Thyroid Paternal Grandmother Ashkenazi Ancestry:No Genetic Testing: N/A SOCIAL HISTORY: Social History Tobacco Use Smoking status: Never Smokeless tobacco: Never Substance Use Topics Alcohol use: Yes Comment: Very rare Caffeine intake: 2/day Exercise:frequent MEDICATIONS: Current Outpatient Medications Medication Sig estradiol (ESTRACE) 0.5 mg tablet Take 1 tablet by mouth every afternoon. medroxyPROGESTERone (PROVERA) 2.5 mg tablet sertraline (ZOLOFT) 50 mg tablet Lactobacillus acidophilus (PROBIOTIC ACIDOPHILUS ORAL) Take 1 tablet by mouth once daily. BABY ASPIRIN ORAL Take by mouth. Multivitamin capsule Take 1 capsule by mouth once daily. FLAXSEED ORAL Take by mouth. CALCIUM CARBONATE (CALCIUM 500 ORAL) Take by mouth. CALCIUM CARBONATE/VITAMIN D3 (VITAMIN D-3 ORAL) Take by mouth. cyanocobalamin (B-12 DOTS) 500 mcg tab Take by mouth once daily. No current facility-administered medications for this visit. Medications discontinued during this visit were upon the verbal directive of the patient that they were no longer taking. ALLERGIES: ALLERGIES Allergen Reactions Adhesive Tape (Connie* Other: See Comments REVIEW OF SYSTEMS: Complete Review of Systems per patient in written document provided by patient. Constitutional: No fevers, chills or fatigue; Denies weight loss, Eyes: No acute visual changes, exudate, trauma or double vision ENT: No acute hearing loss, earaches, ringing ears, No sore throat or hoarseness Lungs: No hemoptysis, no SOB, no wheezing no cough Heart: No chest pain, palpitations, or extremity swelling Abdomen: No blood per rectum, no nausea, vomiting, diarrhea, constipation, abd pain : No dysuria, frequency, hematuria or nocturia Musculoskeletal: No muscular pain ,swelling, cramps, back pain or painful joints Skin: No changes in skin color, no rashes or lesions Psychiatric: No depression, anxiety or insomnia Endocrine: No weight loss or weight gain, No hair loss Hematlogic/Lymphatic: No easy bruising, No lymphadenopathy Vascular: No claudication, no TIA/Stroke, No leg ulcers Neurologic: No new motor or sensory changes, seizures, dizziness or headaches All other systems reviewed and negative other than HPI. PHYSICAL EXAM: There were no vitals taken for this visit. Accompanied by:Suzanne The sensitive examination was discussed with the Patient or Patient's Authorized Stock Selector. As applicable, any other physician, advance practice provider, medical student, or other health professional student that will be observing or involved in the sensitive examination for educational or training purposes was discussed with the Patient or Authorized Stock Selector. The Patient or Authorized Stock Selector has agreed to proceed with the sensitive examination. (Sensitive examination includes inspection and/or palpation of the breasts, pelvis, prostate and anorectal regions) General Appearance: Alert, cooperative, no distress, appears stated age Well nourished Neck: Supple, no adenopathy, no tenderness.Thyroid normal to inspection and palpation and midliline no palpable masses or nodules Lungs: Respirations unlabored. No wheezes, rales, rhonci Heart: Regular rate, no chest wall tenderness, no murmur Extremities: Extremities normal, atraumatic, no cyanosis or edema, no lymphedema Skin: Skin color, texture, turgor normal, no rashes Physical Exam IMAGING: I independently reviewed the patient's studies and have communicated the findings to the patient. Breast Density: heterogeneously dense LABORATORY: I reviewed the patient's medical record in terms of his laboratory values when available. ASSESSMENT: Juanita Valles is a 69 year old female with right breast BI-RADS 4 density 2:00 3 cm from nipple. I have examined Juanita Valles and reviewed the physical findings, laboratory values, clinical documentation and Breast Imaging. 06/29/2024 PROCEDURE: Right breast ultrasound biopsy: Benign fibroadipose tissue. No breast tissue identified. No atypia or malignancy. DISCUSSION We discussed the results of her biopsy/surgery. She understands that pathology revealed benign findings, with no abnormal cells seen. She understands that short-term follow-up in 6 months with repeat imaging will be ordered for stability. She understands that she should continue with routine screening and any other follow-up as previously recommended. PLAN IMAGING: right, US in office 3 months due to patient's travel schedule LABS: REFERRAL: FOLLOW-up: 3 months Ample time was allowed to answer all questions were answered and the patient had no further concerns at this time, Juanita Valles was given our contact information if she has any further questions or concerns. My final recommendation will be communicated back to the referring physician by way of shared medical record and/or written letter via [place] mail. TELEHEALTH VISIT: I was present throughout all critical parts of the telehealth visit. I spent 6 minutes. Anthony Wiggins MD Breast Surgical Oncology [facility] CC: Patient Care Team: Nuris Gillis as PCP - General (Tonnage Compilation Clerk) Disclaimer: This note was created with electronic voice recognition which does have occasional errors. If you have any questions regarding the content within the note please do not hesitate to contact me. documented in this encounter [facility] 07-01-2024 History of Presen t illness Narrative Images from the original note were not included. OPERATIVE REPORT Encounter Date: 06/29/2024 Patient Name: Juanita Valles : 1955 CSN: [id number] PREOPERATIVE DIAGNOSIS: RIGHT breast abnormal US, BIRADS 4 2:00 3cmfn POSTOPERATIVE DIAGNOSIS: Same PROCEDURE: 1. RIGHT breast ultrasound guided biopsy and marking clip placement (CPT 70817) 2. RIGHT breast ultrasound - limited and guidance for needle placement (CPT 77868) CONSENT: After a lengthy discussion, all details of the procedure including risks, benefits, and alternatives were explained in both verbal and written forms and Juanita Valles signed a witnessed consent for ultrasound guided biopsy of the RIGHT breast abnormality. SKIN PREP: Iodine prep sticks ANESTHESIA: 1. 1% Xylocaine (5ml) 2. 1.5% Xylocaine with Epinephrine (25ml) ULTRASOUND UNIT/TRANSDUCER: Sonosite SII, 15 - 6 MHz Linear array BIOPSY DEVICE: [employer]or[employer] Vacuum-assisted rotational-cutting device, 9 Gauge PROCEDURE DETAILS: Following universal protocol, patient, side and site verification was performed with a time out prior to the procedure. Images were reviewed and are reviewed with the patient. The patient is placed with her RIGHT arm overhead. Directed ultrasound imaging is completed and a 0.45 cm hypoechoic, round, density is noted at 2:00 3cmfn. We prepped the skin with Betadine and 1% Xylocaine (5ml) was infiltrated at skin level. A small surgical incision is made with the #11 blade. Under ultrasound guidance, further local anesthetic using 1% Xylocaine with Epinephrine (10ml) is placed in all quadrants around the mass to act as a field block. We then introduced the ATEC biopsy device using a lateral to medial approach into the breast deep to the mass with excellent targeting accuracy and then took multiple core samples. The ATEC device continuously releases an additional 1% Xylocaine with Epinephrine (10ml) throughout the procedure. Once all appropriate cores were removed, irrigation was performed through the ATEC device. We then introduced the Diffon Securmark marking clip, confirmed its positioning as at the targeted site under ultrasound imaging and removed the ATEC biopsy device. CLIP/S LOCATION/S: Mini Cork RIGHT 2:00 3cmfn INCISION CLOSURE: Pressure applied to obtain hemostasis. Surgical incision closed with Steri-Strips. Sterile dressing applied. Patient wrapped with an TREE wrap and an ice pack for postop hemostasis. EBL: 1ml IMMEDIATE COMPLICATIONS: None FOLLOW-UP: She was given post op instructions and will return to office for pathology review. Anthony Wiggins MD Breast Surgical Oncology [facility] CC: Patient Care Team: Nuris Gillis as PCP - General (Tonnage Compilation Clerk) Disclaimer: This note was created with electronic voice recognition which does have occasional errors. If you have any questions regarding the content within the note please do not hesitate to contact me. Images from the original note were not included. BREAST SURGERY Patient Name: Juanita Valles : 1955 CSN: [id number] Encounter Date: 06/29/2024 REFERRAL: Nuris Mcconnell MD, Nuris Gillis,* HISTORY OF PRESENT ILLNESS: Juanita Valles is a 69 year old female who presents unaccompanied for consultation regarding, abnormal right US BIRADS 4. The present findings are asymptomatic to the patient. She does not have prior history of breast disease . She does not have prior history of breast surgery . She does not have first degree family history of breast cancer . Patient does not have nipple discharge, nipple inversion, rashes, dimpling or breast skin changes. She denies fevers/chills/night sweats, weight loss, constant headaches, or other systemic complaints. TIMELINE/IMAGING US BREAST LTD RIGHT Result Date: 06/23/2024 * * *Final Report* * * DATE OF EXAM: Jun 23 2024 9:23AM [facility] [id number] - [facility] US BREAST LTD RT / PROCEDURE REASON: Abnormal Mammogram Screening * * * * Physician Interpretation * * * * [place] [address] #[id number] - [facility] US BREAST LTD RT HISTORY: Patient is 69 years old and is seen for diagnostic evaluation of abnormal mammogram in the right breast. Patient states no personal history of breast cancer. Patient states no personal history of other cancers. COMPARISON STUDIES: The present examination has been compared to prior imaging studies dated 03/29/2020 (mammogram), 03/30/2021 (mammogram), 04/05/2022 (mammogram), 04/09/2023 (mammogram) and 06/18/2024 (mammogram). ULTRASOUND TECHNIQUE: Targeted ultrasound of the indicated area was performed. Goss scale images were saved. ULTRASOUND FINDINGS: There is an oval mass with circumscribed margins measuring 0.5 cm in the right breast at 2 o'clock, middle depth. Internal echotexture is hypoechoic. Color flow imaging demonstrates vascularity is not present. No axillary adenopathy. IMPRESSION: The 0.5 cm oval mass in the right breast is suspicious for malignancy. Ultrasound-guided biopsy is recommended. BI-RADS Category 4: Suspicious Interpreting Radiologist: Raymundo Arriaga M.D. Electronically signed on: 06/23/2024 Mainframe Programmer: CASIMIRO Transcribe Date/Time: Jun 23 2024 9:08A Dictated by : RAYMUNDO ARRIAGA MD This examination was interpreted and the report reviewed and electronically signed by: RAYMUNDO ARRIAGA MD on Jun 23 2024 9:43AM EST ALEM SCREENING W ALEX Result Date: 06/21/2024 * * *Final Report* * * DATE OF EXAM: Jun 18 2024 5:09PM [facility] 0582 - ALEM SCREENING W ALEX / PROCEDURE REASON: Z12.31 Encounter for screening mammogram for malignant neoplasm of breast * * * * Physician Interpretation * * * * [place] [address] #[id number] - ALEM SCREENING W ALEX HISTORY: Patient is 69 years old and is seen for screening. No current complaints. Patient states no personal history of breast cancer. Patient states no personal history of other cancers. COMPARISON STUDIES: The present examination has been compared to prior imaging studies dated 03/18/2019 (mammogram), 03/29/2020 (mammogram), 03/30/2021 (mammogram), 04/05/2022 (mammogram) and 04/09/2023 (mammogram). MAMMOGRAM TECHNIQUE: The study was acquired using full field digital technology and interpreted from soft copy. Digital Breast Tomosynthesis (DBT) images were obtained and used to assist in the interpretation of this examination. Computer-aided detection was utilized by the radiologist in the interpretation of this examination. MAMMOGRAM FINDINGS: The breasts are heterogeneously dense, which may obscure small masses. There is an oval mass in the upper inner quadrant of the right breast, anterior depth. No suspicious masses, calcifications or other abnormalities are seen in the left breast. IMPRESSION: The oval mass in the right breast requires additional evaluation. Diagnostic ultrasound is recommended. BI-RADS Category 0: Incomplete: Needs Additional Imaging Evaluation RISK: Based on the Tyrer-Cuzick (TC) risk assessment model, this patient has a 4.0% lifetime risk of developing breast cancer, meaning they are at average risk for developing breast cancer. However, this is only an estimate based on available history provided on the patient's questionnaire. We encourage all patients to talk with their providers about these results, further recommendations for managing breast health, and appropriate supplemental screening options if the patient has dense breast tissue. Interpreting Radiologist: Latasha Birch M.D. Electronically signed on: 06/21/2024 Mainframe Programmer: CASIMIRO Transcribe Date/Time: Jun 18 2024 4:46P Dictated by : LATASHA BIRCH MD This examination was interpreted and the report reviewed and electronically signed by: LATASHA BIRCH MD on Jun 21 2024 1:11PM EST PERSONAL BREAST HISTORY: Past breast history (prior to initial encounter) is as follows: Breast biopsy: No Breast cysts: No Breast surgery: No Breast cancer: No Bra size 36A OBSTETRIC RELATED HISTORY: Age at onset of menses: 14 Age at First : 26 Number of children: 2 Breast Fed?: Yes Age at Menopause: 52 Post-menopausal Hormone Therapy: Yes PAST MEDICAL HISTORY: PAST MEDICAL HISTORY Diagnosis Date H/O blood clots remote Kidney donor 2004 PAST SURGICAL HISTORY: PAST SURGICAL HISTORY Procedure Laterality Date SECTION HX X 2 LAPAROSCOPY, SURGICAL; NEPHRECTOMY 2004 Left, ( 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) PAST SURGICAL HISTORY OF 83,85,05 c section hernia x2, initial epigastric incisional hernia REP INIT INCI/VENTRAL HERNIA REDUCIBLE 2005 W [address] VEIN 85,01 FAMILY HISTORY: FAMILY HISTORY Problem Relation Age of Onset Hypertension Mother Heart Mother Heart Father No Known Problems Sister No Known Problems Sister No Known Problems Sister No Known Problems Sister Thyroid Maternal Grandmother Thyroid Paternal Grandmother Ashkenazi Ancestry:No Genetic Testing: N/A SOCIAL HISTORY: Social History Tobacco Use Smoking status: Never Smokeless tobacco: Never Substance Use Topics Alcohol use: Yes Comment: Very rare Caffeine intake: 2/day Exercise:frequent MEDICATIONS: Current Outpatient Medications Medication Sig estradiol (ESTRACE) 0.5 mg tablet Take 1 tablet by mouth every afternoon. medroxyPROGESTERone (PROVERA) 2.5 mg tablet sertraline (ZOLOFT) 50 mg tablet Lactobacillus acidophilus (PROBIOTIC ACIDOPHILUS ORAL) Take 1 tablet by mouth once daily. BABY ASPIRIN ORAL Take by mouth. Multivitamin capsule Take 1 capsule by mouth once daily. FLAXSEED ORAL Take by mouth. CALCIUM CARBONATE (CALCIUM 500 ORAL) Take by mouth. CALCIUM CARBONATE/VITAMIN D3 (VITAMIN D-3 ORAL) Take by mouth. cyanocobalamin (B-12 DOTS) 500 mcg tab Take by mouth once daily. No current facility-administered medications for this visit. Medications discontinued during this visit were upon the verbal directive of the patient that they were no longer taking. ALLERGIES: ALLERGIES Allergen Reactions Adhesive Tape (Connie* Other: See Comments REVIEW OF SYSTEMS: Complete Review of Systems per patient in written document provided by patient. Constitutional: No fevers, chills or fatigue; Denies weight loss, Eyes: No acute visual changes, exudate, trauma or double vision ENT: No acute hearing loss, earaches, ringing ears, No sore throat or hoarseness Lungs: No hemoptysis, no SOB, no wheezing no cough Heart: No chest pain, palpitations, or extremity swelling Abdomen: No blood per rectum, no nausea, vomiting, diarrhea, constipation, abd pain : No dysuria, frequency, hematuria or nocturia Musculoskeletal: No muscular pain ,swelling, cramps, back pain or painful joints Skin: No changes in skin color, no rashes or lesions Psychiatric: No depression, anxiety or insomnia Endocrine: No weight loss or weight gain, No hair loss Hematlogic/Lymphatic: No easy bruising, No lymphadenopathy Vascular: No claudication, no TIA/Stroke, No leg ulcers Neurologic: No new motor or sensory changes, seizures, dizziness or headaches All other systems reviewed and negative other than HPI. PHYSICAL EXAM: BP 164/77 (BP Site: Left Arm, BP Position: Sitting, BP Cuff Size: Regular Adult) Pulse 60 Ht 167.6 cm (5' 6) Wt 75.4 kg (166 lb 3.6 oz) BMI 26.83 kg/m Accompanied by:Suzanne The sensitive examination was discussed with the Patient or Patient's Authorized Stock Selector. As applicable, any other physician, advance practice provider, medical student, or other health professional student that will be observing or involved in the sensitive examination for educational or training purposes was discussed with the Patient or Authorized Stock Selector. The Patient or Authorized Stock Selector has agreed to proceed with the sensitive examination. (Sensitive examination includes inspection and/or palpation of the breasts, pelvis, prostate and anorectal regions) General Appearance: Alert, cooperative, no distress, appears stated age Well nourished Neck: Supple, no adenopathy, no tenderness.Thyroid normal to inspection and palpation and midliline no palpable masses or nodules Lungs: Respirations unlabored. No wheezes, rales, rhonci Heart: Regular rate, no chest wall tenderness, no murmur Extremities: Extremities normal, atraumatic, no cyanosis or edema, no lymphedema Skin: Skin color, texture, turgor normal, no rashes Physical Exam IMAGING: I independently reviewed the patient's studies and have communicated the findings to the patient. Breast Density: heterogeneously dense LABORATORY: I reviewed the patient's medical record in terms of his laboratory values when available. ASSESSMENT: Juanita Valles is a 69 year old female with right breast BI-RADS 4 density 2:00 3 cm from nipple. I have examined Juanita Valles and reviewed the physical findings, laboratory values, clinical documentation and Breast Imaging. DISCUSSION: We reviewed the following: BIRADS 4: We discussed the BIRADS radiology classification system. She understands this is a universal classification system used by radiologists to convey information on breast imaging findings. We discussed the significance of BIRADS 4. She understands this indicates there is a 3%-94% probability the findings represent a malignancy, and biopsy is recommended for tissue diagnosis. CANCER RISK REDUCTION - Long discussion regarding lifestyle changes that evidence suggests may decrease risk of breast cancer recurrence: healthy diet (for example Mediterranean), active lifestyle with increased exercise (150 min/week), limited alcholol intake, avoid tobacco products, and achieving an ideal body weight (BMI < 30). Obesity is associated with a 35 - 40% increased risk of breast cancer recurrence and . This relationship is most clearly established for estrogen-receptor positive breast cancer PLAN: She has been recommended: right US guided core biopsy IMAGING: REFERRALS: FOLLOW UP: 7-10 days for review results The following visit was of moderate complexity. It addressed 1 or more chronic illness, 1 undiagnosed new problem, or 1 acute illness with systemic symptoms. In addition in the process of evaluating the patient I reviewed external notes and the test associated with those notes; and independently and interpreted outside imaging and tests, and discussed those results with the patient and family if present. Additional time spent in coordination of care, updating current history and chief complaints, documenting clinical information in the electronic record, and discussing with patient's clinical care team to collaboratively arrive with the management plan as documented in the above note. Ample time was allowed to answer all questions were answered and the patient had no further concerns at this time, Juanita Valles was given our contact information if she has any further questions or concerns. My final recommendation will be communicated back to the referring physician by way of shared medical record and/or written letter via [place] mail. Anthony Wiggins MD Breast Surgical Oncology [facility]: Patient Care Team: Nuris Gillis as PCP - General (Tonnage Compilation Clerk) Disclaimer: This note was created with electronic voice recognition which does have occasional errors. If you have any questions regarding the content within the note please do not hesitate to contact me. documented in this encounter [facility] 06-25-[address] Strickland Pt calling to schedule Breast Biopsy. New Pt, Pt says she is a snow bird, Dr Nuris Owen PCP referred her. PCP [facility] 06-23-2024 Note HNO ID: [id number] Author: MANI OTT, DO Service: ? Author Type: Fellow Type: Progress Notes Filed: 06/23/2024 12:55 Note Text: Patient is a 69 year old female who was recalled from screening mammogram on 06/18/24 for an oval mass in the right breast upper inner quadrant. They subsequently had a right breast ultrasound on 06/23/24 which showed a 0.5 cm mass in the right breast 2 o'clock position 3 cm from the nipple. Ultrasound-guided biopsy was recommended. A normal node was seen in the right axilla on ultrasound. I agree with the recommendation for ultrasound-guided biopsy of the right breast mass. Order was placed in [facility] and a breast imaging nurse navigator will call the patient to schedule the biopsy. Discussed with attending radiologist, Dr. Guadarrama. [facility] 06-23-2024 History of Presen t illness Narrative Radiology Service Progress Note PATIENT NAME: Juanita Valles DATE OF SERVICE: June 23, 2024 TIME: 2:54 PM PATIENT IDENTITY VERIFICATION COMPLETED USING TWO (2) IDENTIFIERS: Name and Date of confirmed by patient verbally. FALL SCREENING: Has the patient had 2 falls in the last year or 1 fall with injury or currently using an Ambulatory Assistive Device (Walker, Cane, Wheelchair, Crutches, etc.)? No PATIENT GENDER DATA: Female. status: : No status: NO. PATIENT RELEVANT IMPLANT DATA REVIEWED: Not Applicable PATIENT PRESENTS WITH AN IMPLANTABLE OR ATTACHED BUTTERMAKER: No RADIOLOGY DEPARTMENT: Ultrasound PERIPHERAL IV DATA: Not applicable SIGNED BY: Anastasia Davis RDMS June 23, 2024 2:54 PM documented in this encounter [facility] 06-23-2024 Note HNO ID: [id number] Author: ANASTASIA DAVIS RDMS Service: ? Author Type: Activity Therapist Type: Progress Notes Filed: 06/23/2024 14:55 Note Text: Radiology Service Progress Note PATIENT NAME: Juanita Valles DATE OF SERVICE: June 23, 2024 TIME: 2:54 PM PATIENT IDENTITY VERIFICATION COMPLETED USING TWO (2) IDENTIFIERS: Name and Date of confirmed by patient verbally. FALL SCREENING: Has the patient had 2 falls in the last year or 1 fall with injury or currently using an Ambulatory Assistive Device (Walker, Cane, Wheelchair, Crutches, etc.)? No PATIENT GENDER DATA: Female. status: : No status: NO. PATIENT RELEVANT IMPLANT DATA REVIEWED: Not Applicable PATIENT PRESENTS WITH AN IMPLANTABLE OR ATTACHED BUTTERMAKER: No RADIOLOGY DEPARTMENT: Ultrasound PERIPHERAL IV DATA: Not applicable SIGNED BY: Anastasia Davis RDMS June 23, 2024 2:54 PM [facility] 06-18-2024 History of Presen t illness Narrative Radiology Service Progress Note PATIENT NAME: Juanita Valles DATE OF SERVICE: June 18, 2024 TIME: 4:39 PM PATIENT IDENTITY VERIFICATION COMPLETED USING TWO (2) IDENTIFIERS: Name and Date of confirmed by patient verbally. FALL SCREENING: Has the patient had 2 falls in the last year or 1 fall with injury or currently using an Ambulatory Assistive Device (Walker, Cane, Wheelchair, Crutches, etc.)? No PATIENT GENDER DATA: Female. status: : No status: N/A PATIENT RELEVANT IMPLANT DATA REVIEWED: Not Applicable PATIENT PRESENTS WITH AN IMPLANTABLE OR ATTACHED BUTTERMAKER: No RADIOLOGY DEPARTMENT: Mammography PERIPHERAL IV DATA: Not applicable SIGNED BY: HALLIE Estrella) June 18, 2024 4:39 PM documented in this encounter [facility] 06-18-2024 Note HNO ID: [id number] Author: MARIE MARRUFO RT(R) Service: Radiology Author Type: Technologist Type: Progress Notes Filed: 06/18/2024 16:40 Note Text: Radiology Service Progress Note PATIENT NAME: Juanita Valles DATE OF SERVICE: June 18, 2024 TIME: 4:39 PM PATIENT IDENTITY VERIFICATION COMPLETED USING TWO (2) IDENTIFIERS: Name and Date of confirmed by patient verbally. FALL SCREENING: Has the patient had 2 falls in the last year or 1 fall with injury or currently using an Ambulatory Assistive Device (Walker, Cane, Wheelchair, Crutches, etc.)? No PATIENT GENDER DATA: Female. status: : No status: N/A PATIENT RELEVANT IMPLANT DATA REVIEWED: Not Applicable PATIENT PRESENTS WITH AN IMPLANTABLE OR ATTACHED BUTTERMAKER: No RADIOLOGY DEPARTMENT: Mammography PERIPHERAL IV DATA: Not applicable SIGNED BY: HALLIE Estrella) June 18, 2024 4:39 PM [facility] 04-09-2023 Miscellaneous Notes [address] [address] April 09, 2023 PID: [id number] Juanita Valles [address] [place] [address] Dear Ms. Valles, We are pleased to inform you that the results of your recent breast imaging exam on 04/09/2023 are normal. Early detection of cancer is very important. We also understand recommendations regarding breast cancer screening are controversial. Please discuss with your primary care provider which strategy is best for you and whether a mammogram is right for you. Your imaging studies and report will be kept on file at [facility] as part of your permanent medical record and are available for your continuing care. Thank you for allowing us to help in meeting your health care needs. Sincerely, Dr. Montoya Interpreting Radiologist [facility] (Normal over 40) documented in this encounter [facility] 04-09-2023 History of Presen t illness Narrative Radiology Service Progress Note PATIENT NAME: Juanita Valles DATE OF SERVICE: April 09, 2023 TIME: 11:21 AM PATIENT IDENTITY VERIFICATION COMPLETED USING TWO (2) IDENTIFIERS: Name and Date of confirmed by patient verbally. FALL SCREENING: Has the patient had 2 falls in the last year or 1 fall with injury or currently using an Ambulatory Assistive Device (Walker, Cane, Wheelchair, Crutches, etc.)? No PATIENT GENDER DATA: Female. status: : No status: N/A PATIENT RELEVANT IMPLANT DATA REVIEWED: Not Applicable RADIOLOGY DEPARTMENT: Mammography PERIPHERAL IV DATA: Not applicable SIGNED BY: RT Sameer(R) April 09, 2023 11:21 AM documented in this encounter [facility] 04-05-2022 Miscellaneous Notes [address] [address] April 05, 2022 PID: [id number] Juanita Valles [address] [place] [id number] Dear Ms. Valles, We are pleased to inform you that the results of your recent breast imaging exam on 04/05/2022 are normal. Early detection of cancer is very important. We also understand recommendations regarding breast cancer screening are controversial. Please discuss with your primary care provider which strategy is best for you and whether a mammogram is right for you. Your imaging studies and report will be kept on file at [facility] as part of your permanent medical record and are available for your continuing care. Thank you for allowing us to help in meeting your health care needs. Sincerely, Dr. Velez Interpreting Radiologist [facility] (Normal over 40) documented in this encounter [facility] 04-05-2022 History of Presen t illness Narrative Radiology Service Progress Note PATIENT NAME: Juanita Valles DATE OF SERVICE: April 05, 2022 TIME: 11:24 AM PATIENT IDENTITY VERIFICATION COMPLETED USING TWO (2) IDENTIFIERS: Name and Date of confirmed by patient verbally. FALL SCREENING: Has the patient had 2 falls in the last year or 1 fall with injury or currently using an Ambulatory Assistive Device (Walker, Cane, Wheelchair, Crutches, etc.)? No PATIENT GENDER DATA: Female. status: : No status: N/A PATIENT RELEVANT IMPLANT DATA REVIEWED: Not Applicable RADIOLOGY DEPARTMENT: Mammography PERIPHERAL IV DATA: Not applicable SIGNED BY: RT Sameer(Franky) April 05, 2022 11:24 AM documented in this encounter [facility] 02-08-2022 History of Presen t illness Narrative Radiology Service Progress Note PATIENT NAME: Juanita Valles DATE OF SERVICE: February 08, 2022 TIME: 3:36 PM PATIENT IDENTITY VERIFICATION COMPLETED USING TWO (2) IDENTIFIERS: Name and Date of confirmed by patient verbally. FALL SCREENING: Has the patient had 2 falls in the last year or 1 fall with injury or currently using an Ambulatory Assistive Device (Walker, Cane, Wheelchair, Crutches, etc.)? No PATIENT GENDER DATA: Female. status: : No status: NO. PATIENT RELEVANT IMPLANT DATA REVIEWED: Not Applicable RADIOLOGY DEPARTMENT: Bone Density PERIPHERAL IV DATA: Not applicable SIGNED BY: RT Sameer(R) February 08, 2022 3:36 PM documented in this encounter [facility] Evaluation note Diagnosis Abnormal findings on diagnostic imaging of breast- Primary Other (abnormal) findings on radiological examination of breast Abnormal finding on radiological examination of breast Other (abnormal) findings on radiological examination of breast [facility] Abnormal finding on radiological examination of breast- Primary Other (abnormal) findings on radiological examination of breast documented in this encounter [facility] Summary Purpose Family History No Family History Records FoundNo Family History Records FoundNo Family History Records Found Advance Directives No Advanced Directives Records FoundNo Advanced Directives Records FoundNo Advanced Directives Records Found Additional Source Comments INFORMATION SOURCE (unrecogn ized section and content) DATE CREATED AUTHOR [facility] DATE CREATED AUTHOR AUTHOR'S ORGANIZ ATION 06/22/2024 [facility] DATE CREATED AUTHOR AUTHOR'S ORGANIZ ATION 06/26/2024 [facility] Source Comments (unrecognize d section and content) In the event this informatio n is protected by the Federal Confidentiality of Alcohol and Drug Abuse Patient Records regulations: The Federal rules restrict any use of the information to criminally investigate or prosecute any alcohol or drug abuse patient.[facility] the event this information is protected by the Federal Confidentiality of Alcohol and Drug Abuse Patient Records regulations: The Federal rules restrict any use of the information to criminally investigate or prosecute any alcohol or drug abuse patient.[facility] the event this information is protected by the Federal Confidentiality of Alcohol and Drug Abuse Patient Records regulations: The Federal rules restrict any use of the information to criminally investigate or prosecute any alcohol or drug abuse patient.[facility] the event this information is protected by the Federal Confidentiality of Alcohol and Drug Abuse Patient Records regulations: The Federal rules restrict any use of the information to criminally investigate or prosecute any alcohol or drug abuse patient.[facility] the event this information is protected by the Federal Confidentiality of Alcohol and Drug Abuse Patient Records regulations: The Federal rules restrict any use of the information to criminally investigate or prosecute any alcohol or drug abuse patient.[facility] the event this information is protected by the Federal Confidentiality of Alcohol and Drug Abuse Patient Records regulations: The Federal rules restrict any use of the information to criminally investigate or prosecute any alcohol or drug abuse patient.[facility] the event this information is protected by the Federal Confidentiality of Alcohol and Drug Abuse Patient Records regulations: The Federal rules restrict any use of the information to criminally investigate or prosecute any alcohol or drug abuse patient.[facility] the event this information is protected by the Federal Confidentiality of Alcohol and Drug Abuse Patient Records regulations: The Federal rules restrict any use of the information to criminally investigate or prosecute any alcohol or drug abuse patient.[facility] the event this information is protected by the Federal Confidentiality of Alcohol and Drug Abuse Patient Records regulations: The Federal rules restrict any use of the information to criminally investigate or prosecute any alcohol or drug abuse patient.[facility] the event this information is protected by the Federal Confidentiality of Alcohol and Drug Abuse Patient Records regulations: The Federal rules restrict any use of the information to criminally investigate or prosecute any alcohol or drug abuse patient.[facility] Care Teams (unrecognized sec tion and content) Bookkeeper Assistant Relationship Specialty Start Date End Date Nuris Gillis [address] [address] PCP - General GRAPHITE PAN DRIER TENDER 06/14/14 Bookkeeper Assistant Relationship Specialty Start Date End Date Brayden McconnellNuris [address] [address] PCP - General GRAPHITE PAN DRIER TENDER 06/14/14 Bookkeeper Assistant Relationship Specialty Start Date End Date Brayden McconnellNruis [address] [address] PCP - General GRAPHITE PAN DRIER TENDER 06/14/14 Bookkeeper Assistant Relationship Specialty Start Date End Date Brayden McconnellNuris [address] [address] PCP - General GRAPHITE PAN DRIER TENDER 06/14/14 Bookkeeper Assistant Relationship Specialty Start Date End Date Brayden Nuris Mcconnell [address] [address] PCP - General GRAPHITE PAN DRIER TENDER 06/14/14 Bookkeeper Assistant Relationship Specialty Start Date End Date Brayden McconnellNuris [address] [address] PCP - General Tonnage Compilation Clerk 06/14/14 Bookkeeper Assistant Relationship Specialty Start Date End Date Brayden McconnellNuris [address] [address] PCP - General Tonnage Compilation Clerk 06/14/14 Bookkeeper Assistant Relationship Specialty Start Date End Date Brayden McconnellNuris [address] [address] PCP - General Tonnage Compilation Clerk 06/14/14 Bookkeeper Assistant Relationship Specialty Start Date End Date Brayden McconnellNuris [address] [address] PCP - General Tonnage Compilation Clerk 06/14/14 Reason for Visit (unrecogniz ed section and content) Reason Comments New Patient New patient Specialty Diagnoses / Procedures Referred By aRviac t Referred To Contact [facility] Diagnoses Abnormal finding on radiological examination of breast Procedures US BIOPSY BREAST RIGHT BX BREAST W/DEVICE 1ST LESION ULTRASOUND Mani Solis DO [address] [place] [address] [facility] [address] [place] [id number] Referral ID Status Reason Start Date Expiration Date V isits Requested Visits Authorized [id number] Closed Auto-Generate d Referral 06/26/2024 07/24/2024 1 1 Reason Comments Results FOR RECORDS PERTAINING TO PATIENTS WHO ARE OR HAVE BEEN ENROLLED IN A CHEMICAL DEPENDENCY/SUBSTANCEABUSE PROGRAM, SOME INFORMATION MAY BE OMITTED. This clinical summary was aggregated from multiple sources. Caution should be exercised in using it in the provision of clinical care. This summary normalizes information from multiple sources, and as a consequence, information in this document may materially change the coding, format and clinical context of patient data. In addition, data may be omitted in some cases. CLINICAL DECISIONS SHOULD BE BASED ON THE PRIMARY CLINICAL RECORDS. [employer] provides no warranty or guarantee of the accuracy or completeness of information in this document.
== END | disposition home or self-care (01) ==
PROVIDERS: PCP Obstetrics & Gynecology Gynecology; Referring Provider Student in an Organized Health Care Education/Training Program; Visit Provider Student in an Organized Health Care Education/Training Program
DX: Z01.810 Encounter for preprocedural cardiovascular examination (principal); N18.31 Chronic kidney disease, stage 3a; Z01.812 Encounter for preprocedural laboratory examination; S83.282D Other tear of lateral meniscus, current injury, left knee, subsequent encounter; E55.9 Vitamin D deficiency, unspecified; X58.XXXD Exposure to other specified factors, subsequent encounter
CPT/HCPCS: 36415; 80069; 82306; 82570; 83970; 84156; 85025; 93005